=== PATIENT | female | born 1965 | race Caucasian/White ===

== ENCOUNTER → 2022-03-23 12:44 | Outpatient (CLI) | payer MEDICARE, SELFPAY ==
--- NOTE | ~2022-03-23 | MM_ITS ---
EXAMINATION: MM screening ariel BI w lovely HISTORY: Screening TECHNIQUE: Craniocaudal and mediolateral oblique 3-D tomosynthesis images were obtained and synthetic 2-D images were generated. CAD analysis was submitted and interpreted. COMPARISON: Comparison to multiple prior studies sequentially, with oldest reviewed study dated 11/28. BREAST PARENCHYMAL COMPOSITION: There are scattered areas of fibroglandular density. FINDINGS: There is no evidence of suspicious mass, calcification, or architectural distortion to sugg est malignancy in either breast. There has been no suspicious interval change. IMPRESSION: 1. No mammographic evidence of malignancy. 2. Recommend routine screening mammography in one year. BI-RADS Category 1: Negative Reviewed, dictated and finalized at location A.
== END ==
PROVIDERS: PCP Family Medicine; Visit Provider Nurse Practitioner Family
DX: Z12.31 Encounter for screening mammogram for malignant neoplasm of breast (principal)
CPT/HCPCS: 77063; 77067

== ENCOUNTER 2022-12-10 17:44 | Outpatient (CLI) | payer MEDICARE, SELFPAY ==
--- NOTE | ~2022-12-10 | CT_ITS ---
EXAMINATION: CT abdomen pelvis wo con DATE: 12/10/2022 18:04 INDICATION: Epigastric pain TECHNIQUE: Computed tomography (CT) of the abdomen and pelvis was performed without intravenous contr ast. The dose-length product (DLP) was 1171.10 mGy-cm. Automated exposure control and iterative recon struction technique were employed. COMPARISON: None FINDINGS: A calcified nodule of the right lower lobe is consistent with old granulomatous disease. Th e heart size is normal. There is a small sliding hiatal hernia. The liver, spleen, pancreas, gallblad paulino, and left adrenal gland are normal. There is a 9 mm adenoma of the right adrenal gland. The kidne ys are unremarkable. There is an inferior vena cava filter. The tines extend beyond the wall of the i nferior vena cava. No pathologically enlarged abdominal or pelvic lymph nodes are identified. Colonic diverticulosis is present without evidence of diverticulitis. IMPRESSION: 1. Small sliding hiatal hernia. Reviewed, dictated and finalized at location F. STITCHER
== END 2022-12-10 17:45 | disposition home or self-care (01) ==
PROVIDERS: PCP Family Medicine; Visit Provider Family Medicine
DX: R10.811 Right upper quadrant abdominal tenderness (principal); K44.9 Diaphragmatic hernia without obstruction or gangrene
CPT/HCPCS: 74176